=== PATIENT | female | born 1980 | race Caucasian/White ===

== ENCOUNTER 2022-09-04 14:16 | Emergency (ER) | payer SELFPAY ==
[2022-09-04] VITALS (8 sets, daily range): BP systolic 108–118; BP diastolic 67–74
[~2022-09-04] VITALS: Ht 157.5 cm; Wt 81.4 kg
[~2022-09-04 14:16] MED LIST: BACTRIM DS1 TAB PO; MACROBID100 M1 PO; PYRIDIUM200 MG PO
[2022-09-04 16:10] LABS: ALBUMIN 4.5 g/dL (3.2-5.0); ALKALINE PHOSPHATASE 99 u/l (38-126); ANION GAP 13 (6-22 (CALC)); BILIRUBIN, TOTAL 0.9 mg/dL (0.02-1.3); BUN 8 mg/dL (7-17); BUN/CREATININE RATIO 9 (12-20 (CALC)); CARBON DIOXIDE 25 mmol/l (22-30); CHLORIDE 98 mmol/l (95-108); CREATININE 0.8 mg/dL (0.5-1.0); GFR FOR AFR.AMER. > 60 ML/MIN (>=60 (CALC)); GFR OTHER RACES > 60 ML/MIN (>=60 (CALC)); POTASSIUM 3.6 mmol/l (3.5-5.1); SGOT/AST 38 u/l (14-36); SODIUM 133 mmol/l (137-146); TOTAL PROTEIN 8.4 g/dL (6.3-8.2)
[2022-09-04] MEDS ORDERED: CIPROFLOXACN500 MG PO (18:18)
== END 2022-09-04 18:24 | disposition home or self-care (01) | DRG 864 ==
LOC: ED 14:16
PROVIDERS: Family Medicine
DX: R50.9 Fever, unspecified (principal); M54.9 Dorsalgia, unspecified; Z20.822 Contact with and (suspected) exposure to COVID-19